=== PATIENT | female | born 1950 ===

== ENCOUNTER 2024-06-22 10:15 | Inpatient (IN) | payer OTHER ==
[~2024-06-22] VITALS: Ht 160 cm; Wt 70.3 kg
[2024-06-22 14:26] LABS: RH POSITIVE
[2024-06-22] MEDS ORDERED: SYNTHROID50 MCG PO (14:36)
[2024-06-22 14:37] VITALS: BP 145/75
[2024-06-22 14:44] VITALS: BP 126/74
[2024-06-27] MEDS ORDERED: CEFAZOLIN SODIUM 1,000 MG VIAL ONE (10:20)
[2024-06-27] MEDS ORDERED: POVIDONE-IODINE 118 ML BOTT TOP ONE (11:54)
[2024-06-27] MEDS ORDERED: BUPIVACAINE HCL/MPF 0.5% 30ML VIAL ONE (11:54)
[2024-06-27] MEDS ORDERED: ONDANSETRON HCL 2 MG/ML VIAL IV PRN (13:45)
[2024-06-27] MEDS ORDERED: ONDANSETRON HCL 2 MG/ML VIAL ONE (15:16)
[2024-06-27] MEDS ORDERED: ONDANSETRON HCL 2 MG/ML VIAL IV ONE (15:20)
[2024-06-27] MEDS ORDERED: MORPHINE SULFATE 2 MG/ML CARTRIDGE IV ONE (15:30)
[2024-06-27] MEDS ORDERED: MORPHINE SULFATE 4 MG/ML VIAL IV SCH (17:00)
[2024-06-27] MEDS ORDERED: MORPHINE SULFATE 4 MG,MORPHINE SULFATE 2 MG IV SCH (17:00)
[2024-06-27] MEDS ORDERED: CEFAZOLIN SODIUM 1,000 MG VIAL IV SCH (18:00)
[2024-06-27 18:18] VITALS: BP 145/75
[2024-06-27 18:48] LABS: HEMATOCRIT 40.4 % (36.0-45.00); HEMOGLOBIN 13.8 g/dL (12.0-15.00); MEAN CELL VOLUME 92.1 fL (80.00-100.00); MEAN CORPUSCULAR HEMOGLOBIN 31.5 pg (27.00-32.0); MEAN CORPUSCULAR HGB CONC 34.2 g/dl (32.0-36.0); PLATELET COUNT 274 K/uL (150-450); RED BLOOD COUNT 4.38 M/uL (4.00-6.00); RED CELL DISTRIBUTION WIDTH 14.5 % (11.5-14.5)
[2024-06-27 23:30] VITALS: BP 128/73
[2024-06-28 04:30] VITALS: BP 141/70
[2024-06-28] MEDS ORDERED: LEVOTHYROXINE SODIUM 50 MCG TABLET PO SCH (06:00)
[2024-06-28] MEDS ORDERED: NEURONTIN300 MG PO (07:04)
[2024-06-28] MEDS ORDERED: IBU800 MG PO (07:04)
[2024-06-28 08:00] VITALS: BP 121/65
[2024-06-28] MEDS ORDERED: ENOXAPARIN SODIUM 40 MG/0.4 ML SYRINGE SUBCUTANEO SCH (09:00)
== END 2024-06-28 10:34 | disposition home or self-care (01) | DRG 743 ==
LOC: O/R 06-27 05:45 → SURH 06-27 10:15 → OB/GYN 06-27 14:45
PROVIDERS: ADMIT Obstetrics & Gynecology Gynecology; ATTEND Obstetrics & Gynecology Gynecology
PROC: 0USG7ZZ Reposition Vagina, Via Natural or Artificial Opening (ICD-10-PCS; 2024-06-27)
PROC: 0JQC0ZZ Repair Pelvic Region Subcutaneous Tissue and Fascia, Open Approach (ICD-10-PCS; 2024-06-27)
PROC: 0UT97ZZ Resection of Uterus, Via Natural or Artificial Opening (ICD-10-PCS; principal; 2024-06-27 11:45)
DX: N72 Inflammatory disease of cervix uteri (principal); N81.12 Cystocele, lateral